=== PATIENT | male | born 1960 | race Caucasian/White ===

== ENCOUNTER 2018-01-12 17:03 | Emergency (ER) | payer SELFPAY ==
[~2018-01-12] VITALS: Ht 157.5 cm; Wt 77.0 kg
[2018-01-12] MEDS ORDERED: TETANUS, DIPHTHERIA, PERTUSSIS VAC/PF 0.5ML (>7YR OLD) IM ONE (19:30)
[2018-01-12] MEDS ORDERED: LIDOCAINE HCL 1% 20ML VIAL (Pyxis) INJ MC ONE (19:30)
[2018-01-12] MEDS ORDERED: BACITRACIN ZINC OINT UDPKT TOP ONE (19:30)
[2018-01-12 19:56] VITALS: BP 146/83
== END 2018-01-12 20:30 | disposition home or self-care (01) ==
LOC: ER 18:16
DX: S61.412A Laceration without foreign body of left hand, initial encounter (principal); W31.2XXA Contact with powered woodworking and forming machines, initial encounter; Y93.89 Activity, other specified; Y92.89 Other specified places as the place of occurrence of the external cause; Z23 Encounter for immunization; I10 Essential (primary) hypertension
CPT/HCPCS: 12004; 90471; 90715; 99283; J3490; Z7610